=== PATIENT | female | born 1940 | race Two or more races ===

== ENCOUNTER 2020-09-21 19:48 | Emergency (ER) | payer MEDICARE, OTHER ==
[~2020-09-21] VITALS: Ht 160 cm; Wt 91.2 kg
--- NOTE | 2020-09-21 20:05 | NUR ---
BIBDAUGHTER, AAOX4, AMBULATORY C/O R GLUTEAL PAIN SINCE 3 DAYS AGO. PT PLACED IN BED 2 ON MONITOR AND PULSE OX. VSS. NO ACUTE DISTRESS NOTED. -TRAUMA.
--- NOTE | 2020-09-21 20:09 | NUR ---
RADIOLOG AT BEDSIDE
[2020-09-21] MEDS ORDERED: HYDROCODONE/APAP 5/325MG TABLET ONE (20:14)
[2020-09-21] MEDS: HYDROCODONE/APAP 5/325MG TABLET PO ONE (20:17)
--- NOTE | 2020-09-21 21:02 | NUR ---
Patient discharged to home in stable condition. Written and verbal after care instructions given. Patient verbalizes understanding of instruction and RX. Pt ambualted out of E.D. Denies pain.
[2020-09-21 21:03] VITALS: BP 134/75
== END 2020-09-21 21:04 | disposition home or self-care (01) ==
LOC: ER 19:58
DX: M25.551 Pain in right hip (principal); M79.661 Pain in right lower leg; I48.91 Unspecified atrial fibrillation; I10 Essential (primary) hypertension; K21.9 Gastro-esophageal reflux disease without esophagitis; Z95.0 Presence of cardiac pacemaker; Z88.5 Allergy status to narcotic agent; Z88.9 Allergy status to unspecified drugs, medicaments and biological substances
CPT/HCPCS: 73502; 73562

== ENCOUNTER 2022-09-17 01:01 | Emergency (ER) | payer MEDICARE, OTHER ==
[~2022-09-17] VITALS: Ht 170.2 cm; Wt 81.6 kg
--- NOTE | 2022-09-17 01:25 | NUR ---
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 AT TRIAGE BP 143/80, +VOMITING, +SHAKINESS. PATIENT IS AAOX4. ATTACHED TO MONITOR. VITALS CHECKED.
--- NOTE | 2022-09-17 01:46 | NUR ---
20g IV ESTABLISHED AT RF
--- NOTE | 2022-09-17 01:47 | NUR ---
BLOOD CULTURES COLLECTED AND SENT TO LAB
--- NOTE | 2022-09-17 01:56 | NUR ---
URINE COLLECTED AND SENT TO LAB
--- NOTE | 2022-09-17 01:56 | NUR ---
XRAY AT BEDSIDE
[2022-09-17 02:12] LABS: BASOPHILS % (AUTO) 0.2 % (0.0-2.0); EOSINOPHILS % (AUTO) 2.3 % (0.0-6.0); HEMATOCRIT 35 % (33-45); HEMOGLOBIN 11.3 g/dL (11.5-14.8); LYMPHOCYTES % (AUTO) 9.6 % (20.0-44.0); MEAN CORPUSCULAR HGB CONC 33 g/dl (31.0-36.0); MEAN CORPUSCULAR VOLUME 86 fL (82-100); MONOCYTES # (AUTO) 0.4 K/uL (0.1-1.30); MONOCYTES % (AUTO) 3.9 % (2.0-12.0); NEUTROPHILS # (AUTO) 8.8 K/uL (1.8-8.9); PLATELET COUNT (AUTO) 346 K/uL (150-450); RED BLOOD CELL COUNT(AUTO) 4.03 MIL/uL (4.0-5.2); WHITE BLOOD COUNT (AUTO) 10.5 K/uL (4.3-11.0)
[2022-09-17 02:29] LABS: CALCIUM, SERUM 8.4 mg/dL (8.5-10.1); CARBON DIOXIDE 26 mmol/L (21-32); CHLORIDE 107 mmol/L (98-107); CREATININE 1.2 mg/dL (0.6-1.3); GLUCOSE 127 mg/dL (74-106); POTASSIUM 4.1 mmol/L (3.5-5.1); SODIUM SERUM 140 mmol/L (136-145); UREA NITROGEN, BLOOD 16 mg/dL (7-18)
[2022-09-17 02:30] LABS: BILIRUBIN,URINE NEGATIVE (NEGATIVE); COLOR,URINE YELLOW (YELLOW); LEUKOCYTE ESTERASE ,URINE SMALL (NEGATIVE); NITRITE, URINE NEGATIVE (NEGATIVE); PH,URINE 5.5 (5.0-8.0); PROTEIN,URINE NEGATIVE (NEGATIVE); UGLUCOSE NEGATIVE (NEGATIVE); UROBILINOGEN,URINE 0.2 EU/dL (0.2)
[2022-09-17 02:39] LABS: BACTERIA,URINE Rare /HPF (None Seen); RBC,URINE 0-2 /HPF (0-2); SQUAMOUS EPITHELIAL CELL,UR Few /HPF (None Seen)
[2022-09-17 02:42] LABS: ALANINE AMINOTRANSFERASE 38 U/L (12-78); ALBUMIN 3.5 g/dL (3.4-5.0); ALKALINE PHOSPHATASE 69 U/L (46-116); ASPARTATE AMINOTRANSFERASE 26 U/L (15-37); BILIRUBIN,DIRECT 0.2 mg/dL (0.0-0.2); BILIRUBIN,TOTAL 0.7 mg/dL (0.2-1.0); TOTAL PROTEIN, SERUM 7.2 g/dL (6.4-8.2)
[2022-09-17] MEDS ORDERED: POTA20TA83 PO ×2 (03:33→03:38)
--- NOTE | 2022-09-17 03:57 | NUR ---
Patient discharged to home in stable condition. Written and verbal after care instructions given. Patient verbalizes understanding of instruction.
--- NOTE | 2022-09-17 03:57 | NUR ---
IV CANNULA REMOVED.
[2022-09-17 03:58] VITALS: BP 155/60
== END 2022-09-17 03:58 | disposition home or self-care (01) ==
LOC: ER 01:15
DX: I50.9 Heart failure, unspecified (principal); I48.91 Unspecified atrial fibrillation; K21.9 Gastro-esophageal reflux disease without esophagitis; Z88.8 Allergy status to other drugs, medicaments and biological substances; Z79.899 Other long term (current) drug therapy
CPT/HCPCS: 36415; 71045-TC; 80048-TC; 80076-TC; 81001; 83605-TC; 83880; 84484-TC; 85025-TC; 85730-TC; 87040-TC